=== PATIENT | female | born 1985 | race African-American/Black ===

== ENCOUNTER 2016-05-14 18:08 | Emergency (ER) | payer BC ==
[~2016-05-14] VITALS: Ht 170.2 cm; Wt 63.5 kg
[~2016-05-14 18:08] MED LIST: ACETAMINOPHEN-1 EAC1 ORAL; ALBUTEROL SULF8.5 GM INH; BENADRYL25 MG ORAL; BENTYL10 MG ORAL; EMADINE5 ML OP; IMODIUM2 MG ORAL; LOMOTIL TABLET1 EACH ORAL; NKM; NORCO 5-325 TA1 EACH ORAL; PENICILLIN V P500 MG PO; TYLENOL325 MG PO; VICODIN 5-5001 EACH PO; ZOFRAN ODT8 MG ORAL; ZOFRAN4 M1 ORAL
[2016-05-14 19:03] VITALS: BP 120/75
--- NOTE | 2016-05-14 19:08 | Emergency Room Report ---
History of Present Illness General Chief Complaint: Skin Rash/Abscess Source: Patient Present Illness HPI 31-year-old female presents to emergency department complaining of itchy rash between the toes of the left foot x2 days. Patient states that the rash began after using the sauna at a new [employer] where she was walking around barefoot. Patient denies lesions or progression of the rash. She denies erythema patient reports a white appearance between the toes it is extremely itchy. She denies nausea vomiting fevers or chills . Denies CP, Palpitations, LOC, AMS, dizziness , Changes in Vision, Sensation, paresthesias, or a sudden severe headache. Allergies: Coded Allergies: IBUPROFEN (Verified Allergy, Intermediate, rash, 05/17/12) Patient History Past Medical History: see triage record Past Surgical History: none Pertinent Family History: none Last Menstrual Period: Depo Now: No Immunizations: UTD Reviewed Nursing Documentation: PMH: Agreed, PSxH: Agreed Nursing Documentation-PMH Past Medical History: No Stated History Hx Asthma: No Review of Systems All Other Systems: negative except mentioned in HPI Physical Exam Vital Signs Date Time Temp Pulse Resp B/P Pulse Ox O2 Delivery O2 Flow Rate FiO2 05/14/16 18:53 98.4 83 16 120/75 100 Room Air Sp02 EP Interpretation: reviewed, normal General Appearance: no apparent distress, alert, GCS 15, non-toxic Head: normocephalic, atraumatic Eyes: bilateral eye PERRL, bilateral eye normal inspection ENT: hearing grossly normal, normal pharynx, no angioedema, normal voice Neck: full range of motion, supple/symm/no masses Respiratory: lungs clear, normal breath sounds, speaking full sentences Cardiovascular #1: regular rate, rhythm, no edema Cardiovascular #2: 2+ dorsalis pedis (R), 2+ dorsalis pedis (L) Rectal: deferred Musculoskeletal: back normal, gait/station normal, normal range of motion, non- tender, no calf tenderness Neurologic: alert, oriented x3, responsive, motor strength/tone normal, sensory intact, speech normal Psychiatric: judgement/insight normal, memory normal, mood/affect normal, no suicidal/homicidal ideation Skin: normal color, warm/dry, well hydrated, rash - macerated white appearance between the left 4th, 3rd, and 5th toes. no erythema, no lesions. Lymphatic: no adenopathy Medical Decision Making PA Attestation Dr. Ang is my supervising Physician whom patient management has been discussed with. Diagnostic Impression: Primary Impression: Rash and other nonspecific skin eruption Additional Impression: Tinea pedis of left foot ER Course 31-year-old female presents to emergency department complaining of itchy rash between the toes of the left foot x2 days. Patient states that the rash began after using the sauna at a new [employer] where she was walking around barefoot. Patient denies lesions or progression of the rash. She denies erythema patient reports a white appearance between the toes it is extremely itchy. She denies nausea vomiting fevers or chills Ddx considered but are not limited to cellulitis, scabies, shingles, varicella, dermatitis, urticaria, eczema, tinea pedis Vital signs: are WNL, pt. is afebrile H&PE are most consistent with Tinea Pedis ORDERS: none required at this time, the diagnosis is clinical ED INTERVENTIONS: None required at this time. DISCHARGE: At this time pt. is stable for d/c to home. Will provide printed patient care instructions, and any necessary prescriptions. Care plan and follow up instructions have been discussed with the patient prior to discharge. Last Vital Signs Date Time Temp Pulse Resp B/P Pulse Ox O2 Delivery O2 Flow Rate FiO2 05/14/16 19:03 16 120/75 100 Room Air 05/14/16 18:53 98.4 83 Disposition: HOME, SELF-CARE Condition: Stable Patient Instructions: Athlete's Foot, [id number] Additional Instructions: Take medications as directed. Follow up with PCP in 3-5 days Return sooner to ED if new symptoms occur, or current symptoms become worse. - Please note that this Emergency Department Report was dictated using [employer] technology software, occasionally this can lead to erroneous entry secondary to interpretation by the dictation equipment. Lisa Hill May 14, 2016 19:08
[2016-05-14] MEDS ORDERED: LAMISIL AT12 GM TP (19:09)
[2016-05-14 19:21] VITALS: BP 120/75
== END 2016-05-14 19:25 | disposition home or self-care (01) ==
LOC: EMR 19:02
DX: B35.3 Tinea pedis (principal); Z88.6 Allergy status to analgesic agent
CPT/HCPCS: 99283

== ENCOUNTER 2017-05-24 10:47 | Emergency (ER) | payer BC, MEDICAID ==
[~2017-05-24] VITALS: Ht 170.2 cm; Wt 63.5 kg
[~2017-05-24 10:47] MED LIST changes: +LAMISIL AT12 GM TP
[2017-05-24 11:14] VITALS: BP 136/92
[2017-05-24] MEDS ORDERED: Methocarbamol 750mg tab ORAL ONE (11:45)
[2017-05-24] MEDS ORDERED: HYDROcodone/Acetamin 10/325 tab ORAL ONE (11:45)
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
[2017-05-24] MEDS ORDERED: ROBAXIN-750750 MG PO (12:26)
[2017-05-24] MEDS ORDERED: ACETAMINOPHEN-1 EAC1 ORAL (12:26)
[2017-05-24 12:35] VITALS: BP 136/92
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
== END 2017-05-24 12:35 | disposition home or self-care (01) ==
LOC: EMR 11:40
DX: S20.319A Abrasion of unspecified front wall of thorax, initial encounter (principal); S60.811A Abrasion of right wrist, initial encounter; Z88.6 Allergy status to analgesic agent; M25.531 Pain in right wrist; V43.92XA Unspecified car occupant injured in collision with other type car in traffic accident, initial encounter; Y92.410 Unspecified street and highway as the place of occurrence of the external cause
CPT/HCPCS: 71045; 99284

== ENCOUNTER 2018-10-02 13:17 | Emergency (ER) | payer BC, MEDICAID ==
[~2018-10-02] VITALS: Ht 170.2 cm; Wt 62.6 kg
[~2018-10-02 13:17] MED LIST changes: +ROBAXIN-750750 MG PO
--- NOTE | 2018-10-02 14:00 | NUR ---
ED Nurse Note: Pt walked in ED c/o n/v since this morning.
[2018-10-02 14:09] LABS: APPEARANCE,URINE CLEAR; BASOPHILS % (AUTO) 0.7 % (0.0-2.0); BILIRUBIN, URINE NEGATIVE (NEGATIVE); COLOR,URINE PALE YELLOW; EOSINOPHILS % (AUTO) 0.5 % (0.0-3.0); GLUCOSE, URINE (UA) NEGATIVE (NEGATIVE); KETONES,URINE 4+ (NEGATIVE); LEUKOCYTE ESTERASE ,URINE NEGATIVE (NEGATIVE); LYMPHOCYTES % (AUTO) 14.6 % (20.0-45.0); MEAN CORPUSCULAR VOLUME 103 FL (80-99); MONOCYTES % (AUTO) 4.3 % (1.0-10.0); NEUTROPHILS % (AUTO) 79.9 % (45.0-75.0); NITRITE,URINE NEGATIVE (NEGATIVE); PH,URINE 7 (4.5-8.0); PLATELET COUNT 218 K/UL (150-450); PROTEIN,URINE 2+ (NEGATIVE); RED BLOOD COUNT 4.17 M/UL (4.20-5.40); RED CELL DISTRIBUTION WIDTH 12.3 % (11.6-14.8); UROBILINOGEN,URINE NORMAL MG/DL (0.0-1.0)
[2018-10-02 14:17] VITALS: BP 117/62
[2018-10-02 14:25] LABS: ANION GAP 9 mmol/L (5-15); BLOOD UREA NITROGEN 16 mg/dL (7-18); CALCIUM 9.5 MG/DL (8.5-10.1); CARBON DIOXIDE 26 MMOL/L (21-32); CHLORIDE 107 MMOL/L (98-107); CREATININE 0.9 MG/DL (0.55-1.30); POTASSIUM 3.7 MMOL/L (3.5-5.1); SODIUM 142 MMOL/L (136-145)
[2018-10-02 14:29] LABS: ALANINE AMINOTRANSFERASE 22 U/L (12-78); ALBUMIN 4.8 G/DL (3.4-5.0); ALBUMIN/GLOBULIN RATIO 1.4 (1.0-2.7); ALKALINE PHOSPHATASE 68 U/L (46-116); ASPARTATE AMINO TRANSFERASE 19 U/L (15-37); BILIRUBIN,TOTAL 0.4 MG/DL (0.2-1.0)
[2018-10-02] MEDS ORDERED: ZOFRAN4 M1 ORAL (14:59)
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
[2018-10-02 15:12] VITALS: BP 120/72
--- NOTE | 2018-10-02 15:14 | NUR ---
ED Nurse Note: Pt cleared by health care Provider for discharge. DC instructions/prescription was given and explained to pt and verbalized understanding of teachings. All medical deviecs such as ID band and IV removed. Pt is AAO x4, ambulatory and left with all personal belongings.
== END 2018-10-02 15:12 | disposition home or self-care (01) ==
LOC: EMR 13:56
DX: K52.9 Noninfective gastroenteritis and colitis, unspecified (principal); Z88.6 Allergy status to analgesic agent
CPT/HCPCS: 36415; 80053; 81001; 81025; 85025; 96361; 96374; 96375; 99284; J2405; S0028